=== PATIENT | male | born 2000 | race Caucasian/White ===

== ENCOUNTER 2025-06-13 14:13 | Emergency (ER) | payer BC, SELFPAY ==
[~2025-06-13 14:13] MED LIST: Iopamidol-370 76% 500 ML MDV (1 ML CHARGE) ONE
[2025-06-13] MEDS ORDERED: levETIRAcetam 500 MG (5 mL) VIAL ONE ×2 (14:17→16:00)
[2025-06-13] MEDS ORDERED: KETAMINE 100 MG/ML (5ML VIAL) ONE (14:18)
[2025-06-13] MEDS ORDERED: Boostrix 0.5 ML (Tdap) VIAL (>/=7 yrs of age) ONE (14:42)
[2025-06-13] MEDS ORDERED: CEFAZOLIN 2 GM VIAL ONE (14:42)
[2025-06-13 15:07] LABS: INR-International Normal Ratio 1.0; Prothrombin Time 13.4 sec (12.0-14.7)
[2025-06-13 15:09] LABS: PTT 21.6 sec (22.9-36.1)
[2025-06-13 15:16] LABS: #Basophils 0.04 10x3/uL (0.0-0.2); #Eosinophils 0.11 10x3/uL (0.0-0.7); #Monocytes 0.90 10x3/uL (0.11-0.59); #Neutrophils 5.51 10x3/uL (1.40-6.50); %Basophils 0.4 % (0.0-1.0); %Eosinophils 1.0 % (0.0-10.0); %Lymphocytes 41.7 % (21.0-51.0); %Monocytes 7.9 % (0.0-10.0); %Neutrophils 48.1 % (42.0-75.0); Hematocrit 46.7 % (42.0-52.0); Hemoglobin 15.4 g/dL (14.0-18.0); Mean Corpuscular Hemoglobin 30.0 pg (27.0-31.0); Mean Corpuscular Volume 91.0 fL (78.0-98.0); Platelet Count 240 10x3/uL (130-400); Red Blood Cell (RBC) Count 5.13 mill/uL (4.70-6.10); White Blood Cell (WBC) Count 11.42 10x3/uL (4.8-10.8)
[2025-06-13 15:40] LABS: Actual Bicarbonate (HCO3a) 22.4 mEq/L (22-28); Analyzer IN Cardio ER; Base Excess (BEa) -3.3 mEq/L (-2.0 to +3.0); CO2 Tension 42.6 mmHg (35.0-45.0); Calcium, Ionized (arterial) 1.13 mmol/L (1.12-1.30); Hematocrit-ABG 42 % (42.0-52.0); Hemoglobin (Hb) 14.2 g/dL (14.0-18.0); O2 Tension (PaO2), arterial 181.5 mmHg (80.0-100.0); Potassium - ABG Lab 4.07 mmol/L (3.70-5.30); pH, Arterial 7.339 (7.35-7.45)
[2025-06-13 15:40] LABS: ALT (SGPT) 29 U/L (Less than 45); AST (SGOT) 44 U/L (11-34); Albumin 4.8 g/dL (3.1-4.5); Alkaline Phosphatase 74 U/L (40-110); Anion Gap 21 mmol/L (10-20); BUN (Urea Nitrogen) 15 mg/dL (8.9-20.6); Bilirubin, Total 0.5 mg/dL (0.3-1.2); Calc. Creatinine Clearance 0 mL/min (70-130); Calcium 9.7 mg/dL (7.8-10.44); Carbon Dioxide 18 mmol/L (22-29); Chloride 104 mmol/L (98-107); Globulin 3.6 g/dL (2.4-3.5); Glucose 142 mg/dL (70-105); Lipase 22 U/L (8-78); Potassium 4.5 mmol/L (3.5-5.1); Sodium 138 mmol/L (136-145)
[2025-06-13 15:56] LABS: Puncture Site Right Brachial art
[2025-06-13 15:57] LABS: ALV-art Gradient 50.450 mmHg (0-20)
== END 2025-06-13 17:13 | disposition short-term general hospital (02) ==
LOC: ERS 14:13 → EDBD 14:13 → ERS 17:13
DX: S06.6XAA Traumatic subarachnoid hemorrhage with loss of consciousness status unknown, initial encounter (principal); S12.200A Unspecified displaced fracture of third cervical vertebra, initial encounter for closed fracture; S12.300A Unspecified displaced fracture of fourth cervical vertebra, initial encounter for closed fracture; I77.74 Dissection of vertebral artery; R29.3 Abnormal posture; V89.2XXA Person injured in unspecified motor-vehicle accident, traffic, initial encounter
CPT/HCPCS: 12004; 31500; 36600; 51702; 70450; 70496; 70498; 71045; 71260; 72125; 74177; 80053; 80307; 82805; 83690; 85025; 85610; 85730; 86850; 86900; 86901; 90471; 90715; 93005; 94760; 96365; 96366; 96368; 96375; 96376; 99292; G0390; J1953; J2060; J2704; J3010; Q9967